=== PATIENT | female | born 1985 | race Caucasian/White ===

== ENCOUNTER 2016-09-15 09:16 | Emergency (ER) | payer SELFPAY ==
[~2016-09-15] VITALS: Ht 165.1 cm; Wt 61.6 kg
[2016-09-15 09:18] VITALS: BP 152/78
== END 2016-09-15 10:26 | disposition home or self-care (01) ==
LOC: ED 10:20
DX: N30.01 Acute cystitis with hematuria (principal); R50.81 Fever presenting with conditions classified elsewhere; E87.1 Hypo-osmolality and hyponatremia
CPT/HCPCS: 99283